=== PATIENT | female | born 1950 | race Two or more races ===

== ENCOUNTER 2022-09-16 14:44 | Emergency (ER) | payer OTHER ==
[~2022-09-16] VITALS: Ht 160 cm; Wt 77.1 kg
[2022-09-16] MEDS ORDERED: DILTIAZEM ER120 M2 (14:55)
[2022-09-16] MEDS ORDERED: CLONAZEPAM0.125 MG PO (14:55)
[2022-09-16] MEDS ORDERED: DEPAKOTE ER250 MG PO (14:55)
[2022-09-16] MEDS ORDERED: PEPCID AC10 MG (14:55)
[2022-09-16] MEDS ORDERED: LEVOTHYROXINE25 MCG PO (14:56)
[2022-09-16] MEDS ORDERED: QUETIAPINE FUMA25 MG PO (14:56)
[2022-09-16] MEDS ORDERED: HYDRODIURIL12.5 MG PO (14:56)
[2022-09-16] MEDS ORDERED: OPTIMAL D31250 MCG PO (14:56)
[2022-09-16] MEDS ORDERED: NASAL MIST126 ML (14:57)
== END 2022-09-17 05:31 ==
LOC: ER 14:44
DX: S52.124A Nondisplaced fracture of head of right radius, initial encounter for closed fracture (principal); W19.XXXA Unspecified fall, initial encounter; Y93.9 Activity, unspecified; Y92.89 Other specified places as the place of occurrence of the external cause; Y99.9 Unspecified external cause status; E87.6 Hypokalemia; I10 Essential (primary) hypertension; G30.9 Alzheimer's disease, unspecified; F02.80 Dementia in other diseases classified elsewhere, unspecified severity, without behavioral disturbance, psychotic disturbance, mood disturbance, and anxiety; E03.9 Hypothyroidism, unspecified

== ENCOUNTER 2022-11-24 17:16 | Emergency (ER) | payer OTHER ==
[~2022-11-24] VITALS: Ht 160 cm; Wt 68.0 kg
[~2022-11-24 17:16] MED LIST: CLONAZEPAM0.125 MG PO; DEPAKOTE ER250 MG PO; DILTIAZEM ER120 M2; HYDRODIURIL12.5 MG PO; LEVOTHYROXINE25 MCG PO; NASAL MIST126 ML; OPTIMAL D31250 MCG PO; PEPCID AC10 MG; QUETIAPINE FUMA25 MG PO
[2022-11-24] MEDS ORDERED: CENTRUM SILVER1 EAC7 PO (17:22)
[2022-11-24] MEDS ORDERED: VITAMIN B-121000 MCG PO (17:23)
[2022-11-24] MEDS ORDERED: HYDROCHLOROTHIA25 MG PO (17:23)
[2022-11-24] MEDS ORDERED: SYNTHROID150 MCG PO (17:23)
[2022-11-24 20:05] LABS: HEMATOCRIT 38.1 % (36.0-45.00); HEMOGLOBIN 12.6 g/dL (12.0-15.00); MEAN CELL VOLUME 99.2 fL (80.00-100.00); MEAN CORPUSCULAR HGB CONC 33.2 g/dl (32.0-36.0); PLATELET COUNT 335 K/uL (150-450); RED BLOOD COUNT 3.84 M/uL (4.00-6.00); RED CELL DISTRIBUTION WIDTH 14.5 % (11.5-14.5)
== END 2022-11-24 22:36 | disposition home or self-care (01) ==
LOC: ER 17:16
PROVIDERS: General Practice
DX: R21 Rash and other nonspecific skin eruption (principal); W57.XXXA Bitten or stung by nonvenomous insect and other nonvenomous arthropods, initial encounter; I10 Essential (primary) hypertension; E03.8 Other specified hypothyroidism; Z88.8 Allergy status to other drugs, medicaments and biological substances